=== PATIENT | female | born 1945 | race Caucasian/White ===

== ENCOUNTER 2020-11-28 06:44 | Day surgery (SDC) | payer MEDICARE, BC ==
[2020-11-28] MEDS ORDERED: Propofol 200 MG/20 ML SDV IV ONE (06:45)
[2020-11-28] MEDS ORDERED: Sodium Chloride 0.9% 10 ML Syringe FLUSH PRN (06:45)
[2020-11-28] MEDS ORDERED: ceFAZolin 1 GM Vial IVPUSH ONE (06:45)
[2020-11-28] MEDS ORDERED: Lidocaine 1% PF 2 ML SDV INJECT ONE (06:45)
[2020-11-28] MEDS ORDERED: Lactated Ringers 1,000 ML IV SCH (06:45)
--- NOTE | 2020-11-28 08:18 | PCM.PN ---
- General Info Date of Service: 11/28/20 - Review of Systems Systems Review Comment:: 75 y/o female with family history of colon cancer in a first degree relative here for colonoscopy. She is medically stable to proceed. Her recent H and P is reviewed and no significant changes noted. I have discussed the proposed colonoscopy with the patient. She agrees to proceed accepting risks. - Patient Data Vitals - Most Recent: Last Vital Signs Temp 97.9 F 11/28/20 06:50 Pulse 72 11/28/20 06:50 Resp 16 11/28/20 06:50 BP 147/68 H 11/28/20 06:50 Pulse Ox 96 11/28/20 06:50 Weight - Most Recent: 220 lb Med Orders - Current: Current Medications Lactated Ringer's (Ringers, Lactated) 1,000 mls @ 125 mls/hr IV ASDIRECTED MISAEL Last Admin: 11/28/20 07:20 Dose: 125 mls/hr Documented by: Sodium Chloride (Saline Flush) 10 ml FLUSH ASDIRECTED PRN PRN Reason: Keep Vein Open Sepsis Event Note - Focused Exam Vital Signs: Vital Signs Temp Pulse Resp BP Pulse Ox 11/28/20 06:50 97.9 F 72 16 147/68 H 96 - Problem List Review Problem List Initiated/Reviewed/Updated: Yes - My Orders Last 24 Hours: My Active Orders 11/28/20 Breakfast Nothing Per Oral Diet [DIET] 11/28/20 06:45 Patient Status [ADT] Routine Patient to Empty Bladder [RC] ASDIRECTED Verify Patient Consent Obtain [RC] ASDIRECTED Lactated Ringers [Ringers, Lactated] 1,000 ml IV ASDIRECTED Sodium Chloride 0.9% [Saline Flush] 10 ml FLUSH ASDIRECTED PRN Peripheral IV Insertion Adult [OM.PC] Routine - Assessment Assessment:: Family history of colon cancer - Plan Plan:: Colonoscopy
--- NOTE | 2020-11-28 08:53 | PCM.OPNOTE ---
- General Post-Op/Procedure Note Date of Surgery/Procedure: 11/28/20 Operative Procedure(s): Colonoscopy with biopsy Findings: Large sessile polyp in cecum small transverse colon polyp Extensive left colon diverticulosis Pre Op Diagnosis: Family History of Colon Cancer Post-Op Diagnosis: Colon Polyps. Diverticulosis Anesthesia Technique: MAC Primary Surgeon: Malachi Rodriguez Pathology: Colon Polyps EBL in mLs: 2 Complications: None Condition: Good
--- NOTE | 2020-11-28 09:25 | OR ---
DATE OF OPERATION: 11/28/2020 SURGEON: Malachi Rodriguez MD PREOPERATIVE DIAGNOSIS: Family history of colon cancer. POSTOPERATIVE DIAGNOSES: Colon polyps and diverticulosis. OPERATION PERFORMED: Colonoscopy with biopsy. INDICATIONS FOR SURGERY: This 75-year-old female has a family history of colon cancer in a first-degree relative. She comes for high-risk screening colonoscopy. FINDINGS: In the cecum, the patient has a large sessile polyp approximately 2 cm in diameter. It is soft, somewhat irregular, but flat. It is located between the ileocecal valve and the area where the appendiceal orifice would normally bee. There is also a small polyp in the midtransverse colon approximately 4 mm in size. The patient also has extensive diverticulosis of the left colon, but without evidence of acute inflammation. DESCRIPTION OF PROCEDURE: The patient was taken to the operating room. She was given intravenous sedation and with her in the left lateral decubitus position, digital rectal exam was performed showing no rectal masses. The Olympus colonoscope was inserted into the rectum. Retroflexed examination of the rectal canal was performed. The scope was then carefully advanced under direct visualization through the entire length of the colon until the cecum was reached. Cecal acquisition was confirmed by noting the normal internal cecal anatomy including the ileocecal valve and the area of the appendiceal orifice. In the cecum, the above-described relatively large polyp was identified. Because of its flat configuration and relatively large size, it was felt that any attempt at removal using conventional polypectomy technique would be at high risk for perforation, so biopsies are taken of the polyp with a cold biopsy forceps for diagnosis, but the polyp is not removed today. It is felt likely that this polyp will have to be removed using advanced polypectomy technique. After examining the cecum and after the biopsies of the polyp had been taken, the scope was slowly withdrawn sequentially re-examining the colonic segments. In the transverse colon, the other small polyp that is encountered is removed with a biopsy forceps. Examination is then completed, and with no sign of any complication, the scope was removed, and the patient was taken from the operating room in satisfactory condition. ESTIMATED BLOOD LOSS: 2 mL. COMPLICATIONS: None. PROGNOSIS: Good. /[id number] MEREDITH/ROSE MARIE MAO
--- NOTE | 2020-11-30 22:56 | HP ---
ADMISSION DATE: 11/28/2020 HISTORY OF PRESENT ILLNESS: This 75-year-old female presents today for colonoscopy. The patient does have a family history of colon cancer. Her last colonoscopy was over 5 years ago. PAST MEDICAL HISTORY: Shows that she carries chronic diagnoses of hypertension and GERD. CURRENT MEDICATIONS: Include; 1. Lasix. 2. Gabapentin. 3. Pepcid. 4. Celebrex. ALLERGIES: She is allergic to aspirin, hydrocodone, and tape. FAMILY HISTORY: Notable for colon cancer in her father. There is also a history of breast cancer in several second-degree relatives and also GI cancer in a grandparent. PRIOR SURGERIES: Include appendectomy, hip replacement, hysterectomy, and multiple endoscopies. REVIEW OF SYSTEMS: She has not had any recent cough, cold, or sore throat symptoms. She is not experiencing any chest pain or palpitations. She says her bowel function has been satisfactory. She denies any rectal bleeding. PHYSICAL EXAMINATION: VITAL SIGNS: Temperature is 97.9, pulse 72, blood pressure is 147/68. GENERAL: The patient is alert, adult female, currently in no acute distress. HEENT: Head is normocephalic. No scleral icterus. HEART: Regular without murmur. LUNGS: Clear. ABDOMEN: Soft, nontender with no palpable mass. IMPRESSION: Family history of colon cancer. PLAN: Colonoscopy. INFORMED CONSENT: I have discussed the proposed colonoscopy with the patient. She understands the indications and risks, and agrees to proceed. /[id number] MEREDITH/ROSE MARIE
== END 2020-11-28 10:10 | disposition home or self-care (01) ==
LOC: FB.SDS 06:44
PROVIDERS: ATTEND Surgery
DX: Z12.11 Encounter for screening for malignant neoplasm of colon (principal); D12.0 Benign neoplasm of cecum; D12.3 Benign neoplasm of transverse colon; K57.30 Diverticulosis of large intestine without perforation or abscess without bleeding; Z80.0 Family history of malignant neoplasm of digestive organs; Z79.899 Other long term (current) drug therapy
CPT/HCPCS: 00811-QZ; 88305; J0690; J2001; J2704; J7120